=== PATIENT | female | born 1980 | race Two or more races ===

== ENCOUNTER 2024-11-17 19:07 | Emergency (ER) | payer OTHER ==
[~2024-11-17] VITALS: Wt 61.7 kg
[2024-11-17] MEDS ORDERED: NEOMYCIN/POLYMYXIN B/HYDROCORT 20 DR/ML BOTTLE OT STA (20:30)
[2024-11-17] MEDS ORDERED: NEOMYCIN/POLYMYXIN B/HYDROCORT 20 DR/ML BOTTLE OT ONE (20:37)
== END 2024-11-17 22:02 | disposition home or self-care (01) ==
LOC: ER 19:09
DX: H60.8X1 Other otitis externa, right ear (principal)